=== PATIENT | female | born 1995 | race Caucasian/White ===

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

== ENCOUNTER 2017-11-28 13:56 | Emergency (ER) | payer OTHER ==
[~2017-11-28] VITALS: Ht 154.9 cm; Wt 54.5 kg
[~2017-11-28 13:56] MED LIST: BCPILLS PO; DIPH1TAB87 PO
[2017-11-28 14:05] VITALS: TEMP 36.6; Ht 154.9 cm; Wt 54.5 kg
[2017-11-28] MEDS ORDERED: IBUPROFEN 600 MG TAB PO STA (14:41)
[2017-11-28] MEDS ORDERED: PHEN-876 PO (16:04)
[2017-11-28] MEDS ORDERED: CEFD300C2 PO (16:04)
[2017-11-28 16:17] VITALS: BP 120/81; PULSE 77; O2SAT 99
--- NOTE | 2017-11-28 21:08 | EMERGENCY ROOM VISIT NOTE ---
ED Visit Note First contact with patient: 14:19 Chief Complaint: There is blood in my urine and I am having pain when I am urinating. History of Present Illness: Ms. Wilhelm is a 22-year-old white female who ambulates into the ED accompanied by female friend complaining of burning urination and hematuria. [place] patient reports she has a history of frequent urinary tract infections. She reports last year she had 5 urinary tract infections and this year she has had one episode of pyelonephritis and a urinary tract infection approximately 3-4 weeks ago. Patient reports she was feeling fine last night and when she awoke this morning she started having burning urination and gross hematuria. Additionally she reports she is having moderate to severe suprapubic pain. She describes this as a sharp and cramping sensation. She rates her discomfort 7/10. The pain is nonradiating. The pain worsens when she urinates. She has not identified any alleviating factors related to the pain. She taken one AZO tablet without relief of her discomfort. She denies any associated symptoms including fevers, chills, sweats, skin eruptions, skin color changes, upper respiratory tract symptoms, nausea, vomiting, flank pain, vaginal bleeding, vaginal discharge, diarrhea, constipation. Review of Systems: As noted above in history of present illness. All body systems were reviewed and found to be negative as noted above. Past Medical History: As previously noted, unspecified heart surgery. Current Medications: control. Allergies to Medications: Patient denies. Social History: Patient is currently a student and is not employed; she feels safe in her home environment; she denies tobacco use and admits to alcohol use. Physical Examination: Vital Signs: Date Time Temp Pulse Resp B/P (MAP) Pulse Ox O2 Delivery O2 Flow Rate FiO2 11/28/17 16:17 77 17 120/81 99 11/28/17 14:05 36.6 91 16 128/85 97 Room Air GENERAL: 22-year-old female in mild distress due to pain, nontoxic-appearing, afebrile and hemodynamically stable. Patient is anxious and tearful. NEUROLOGICAL: Awake, alert and oriented to person, place and time. Answering questions appropriately and following commands. Normal gait. Good hand eye coordination. No focal motor sensory deficits. SKIN: Warm, dry and pink. No soft tissue eruptions or trauma noted. HEENT: Atraumatic and normocephalic. Sclera white and conjunctiva pink. No drainage from naris. Airway patent. Speech normal. No lymphadenopathy. Trachea midline. No jugular venous distention. BACK: No tenderness over the bony spine. Mild right-sided CVA tenderness. THORAX: Lungs sounds are clear to auscultation and equal bilaterally with symmetrical chest wall. No wheezing, rales or rhonchi. ABDOMEN: Flat and soft with mild suprapubic tenderness. Positive bowel sounds in all quadrants. No guarding, rigidity or organomegaly. EXTREMITIES: Moves all extremities well on command and with purpose. All distal neurovascular statuses are intact and equal bilaterally. ED Course: Patient is assessed as noted above. Patient's medication list was reviewed. Laboratory Testing: Test 11/28/17 14:30 Range/Units Urine Color RED Urine Appearance TURBID CLEAR Urine pH 4.5-7.5 Urine Specific [place] 1.016 1.000-1.030 Urine Protein NEG Urine Glucose (UA) NEG Urine Ketones NEG Urine Occult Blood NEG Urine Nitrite NEG Urine Bilirubin NEG Urine Urobilinogen NEG Urine Leukocyte Esterase NEG Urine RBC >30 0-4 /hpf Urine WBC >30 0-5 /hpf Urine Epithelial Cells >30 0-5 /lpf Urine Bacteria 1+ NEG Urine Test NEG NEG Urine Culture: Pending Patient was given 600 mg of ibuprofen by mouth for pain. Patient was educated about today's findings and instructed on her treatment plan ; she verbalizes understanding and agreement with this plan. Clinical Impression: Hemorrhagic cystitis. Disposition: Patient discharged home in stable condition; prior to departure she was reassessed and subjectively reported she was feeling better but did rate her pain an 8/10. Plan: Patient was prescribed Omnicef 200 mg 2 times a day for 7 days. Patient was prescribed Pyridium 200 mg 3 times a day for 2 days. Patient was encouraged alternate ibuprofen and acetaminophen for pain. Patient was encouraged to stay well-hydrated with increased clear fluids. Patient was encouraged to follow-up at [facility] for recheck in 2-3 days and culture results. Patient was encouraged return the ED for worsening/uncontrolled pain, fevers, vomiting, flank pain or any new/concerning symptoms.
== END 2017-11-28 16:17 | disposition home or self-care (01) ==
LOC: C.EDB 13:58 → C.EDD 16:17
DX: N30.91 Cystitis, unspecified with hematuria (principal); Z87.440 Personal history of urinary (tract) infections; Z79.3 Long term (current) use of hormonal contraceptives